=== PATIENT | male | born 1990 | race African-American/Black ===

== ENCOUNTER 2017-11-15 11:12 | Emergency (ER) | payer OTHER ==
[~2017-11-15] VITALS: Ht 182.9 cm; Wt 113.4 kg
[2017-11-15 11:53] LABS: URINE BILIRUBIN NEGATIVE (Negative); URINE BLOOD TRACE (Negative); URINE CLARITY CLEAR; URINE COLOR YELLOW; URINE GLUCOSE-RANDOM* NEGATIVE (Negative); URINE KETONES NEGATIVE (Negative); URINE LEUKOCYTES TRACE (Negative); URINE NITRITE NEGATIVE (Negative); URINE PROTEIN (DIPSTICK) NEGATIVE (Negative); URINE SPECIFIC GRAVITY >= 1.030 (1.005-1.035); URINE UROBILINOGEN 0.2 E.U./dl (0.2-1.0)
[2017-11-15 12:11] VITALS: BP 131/73
== END 2017-11-15 12:11 | disposition home or self-care (01) ==
LOC: ER 11:12 → EDBD 11:12 → ER 12:11
PROVIDERS: Physician Assistant
DX: Z20.2 Contact with and (suspected) exposure to infections with a predominantly sexual mode of transmission (principal); R36.9 Urethral discharge, unspecified